=== PATIENT | male | born 1950 | race African-American/Black ===

== ENCOUNTER 2017-08-21 19:13 | Emergency (ER) | payer OTHER | END 2017-08-21 20:25 | disposition home or self-care (01) | LOC: D.ER 19:13 | DX: S05.02XA Injury of conjunctiva and corneal abrasion without foreign body, left eye, initial encounter (principal); X58.XXXA Exposure to other specified factors, initial encounter; Y93.89 Activity, other specified; Y92.89 Other specified places as the place of occurrence of the external cause ==